=== PATIENT | male | born 1970 | race Caucasian/White ===

== ENCOUNTER 2019-04-29 23:16 | Emergency (ER) | payer SELFPAY ==
[~2019-04-29] VITALS: Ht 170.2 cm; Wt 82.3 kg
[~2019-04-29 23:16] MED LIST: ACET500C5 PO
[2019-04-29 23:21] VITALS: BP 158/88; PULSE 66; RESP 18; Ht 170.2 cm; Wt 82.3 kg
[2019-04-30] MEDS ORDERED: ACETAMINOPHEN 325 MG TAB PO ONE
--- NOTE | 2019-04-30 01:19 | ERD ---
ER Documentation Chief Complaint Chief Complaint R head,neck & shoulder pain,hearing loss r/t work injury w/ KO HPI 40-year-old male presents 1 week status post getting hit in the head and neck area with a beam at work. He states that he lost consciousness for a few seconds. He denies any history of vomiting, visual changes, deficits. Pain in his neck and shoulder area has resolved although he has intermittent pain on the left parietal area. He has no bleeding or lacerations. He intermittently has pain on the right side. He feels that there is intermittent swelling. ROS All systems reviewed and are negative except as per history of present illness. Medications Home Meds Active Scripts Acetaminophen* (Tylophen*) 500 Mg Capsule, 1 CAP PO Q6H PRN for PAIN AND OR ELEVATED TEMP, #20 CAP Prov:KEYLA SOLORZANO MD 04/30/19 Allergies Allergies: Coded Allergies: No Known Allergy (Unverified , 04/29/19) PMhx/Soc Medical and Surgical Hx: pt denies Medical Hx, pt denies Surgical Hx Hx Alcohol Use: Yes (occasional) Hx Substance Use: No Hx Tobacco Use: No FmHx Family History: No diabetes, No coronary disease, No other Physical Exam Vitals Vital Signs Date Temp Pulse Resp B/P (MAP) Pulse Ox O2 O2 Flow FiO2 Time Delivery Rate 04/29/19 98.8 66 18 158/88 99 23:21 (111) Physical Exam Const: No acute distress Head: Atraumatic Eyes: Normal Conjunctiva ENT: Normal External Ears, Nose and Mouth. Neck: Full range of motion. No meningismus. Nontender Resp: Clear to auscultation bilaterally Cardio: Regular rate and rhythm, no murmurs Abd: Soft, non tender, non distended. Normal bowel sounds Skin: No petechiae or rashes Back: No midline or flank tenderness Ext: No cyanosis, or edema Neur: Awake and alert. Ambulatory. No appreciable focal neurologic deficits. Psych: Normal Mood and Affect Results 24 hrs Current Medications Medications Dose Sig/Wendy Start Time Status Last (Trade) Ordered Route PRN Stop Time Admin Dose Reason Admin 650 mg ONCE ONCE 04/30/19 DC 04/30/19 Acetaminophen PO 00:00 00:12 (Tylenol 04/30/19 00:04 Tab) Procedures/MDM 40-year-old male presents with intermittent headache primarily on the left side after head injury 1 week ago. He has no signs of neurologic deficits, signs of infection, neck injury. Given the persistence of symptoms CT brain ordered. Patient CT is negative for any acute traumatic injury or hemorrhage. Patient discharged with copy of the results we can follow-up with primary care. Departure Diagnosis: Primary Impression: Acute head injury Encounter type: initial encounter Qualified Codes: S09.90XA - Unspecified injury of head, initial encounter Condition: Stable Patient Instructions: HEAD INJURY, No Wake-Up (Adult) Referrals: NO PRIMARY,CARE PHYSICIAN (PCP) Additional Instructions: Examines normal hoy. Cheque otro vez con gonzalez doctor primario en el proximo [place] or regresa para mas o nueva simptomas. KEYLA SOLORZANO MD Apr 30, 2019 01:19 MINA REESE PA-C Apr 30, 2019 02:15
== END 2019-04-30 02:25 | disposition home or self-care (01) ==
LOC: FTE 23:16
DX: S09.90XA Unspecified injury of head, initial encounter (principal); R51 Headache; W22.8XXA Striking against or struck by other objects, initial encounter; Y92.9 Unspecified place or not applicable
CPT/HCPCS: 70450